=== PATIENT | female | born 1975 | race Caucasian/White ===

== ENCOUNTER 2017-03-15 01:14 | Emergency (ER) | payer BC ==
[2017-03-15] MEDS ORDERED: NEOMYCIN-POLYMYXIN-HC EAR SUSP 200 DROP/10 ML BOT ONE (01:42)
[2017-03-15] MEDS ORDERED: cefTRIAXone\\ROCEPHIN 1 GM VIAL ONE (01:43)
[2017-03-15] MEDS ORDERED: Ibuprofen 800 MG TAB ONE (01:43)
[2017-03-15] MEDS ORDERED: Lidocaine 1% 20 ML MDV ONE (09:45)
== END 2017-03-15 02:05 | disposition home or self-care (01) ==
LOC: MADERS 01:14
DX: H60.91 Unspecified otitis externa, right ear (principal); E03.9 Hypothyroidism, unspecified; I10 Essential (primary) hypertension; Z79.899 Other long term (current) drug therapy
CPT/HCPCS: 96372; J0696; J2001

== ENCOUNTER 2020-08-29 18:27 | Emergency (ER) | payer BC, OTHER, SELFPAY ==
[2020-08-29] MEDS ORDERED: HYDROcodone/Acetaminophen 10/325 mg Tablet ONE (19:01)
== END 2020-08-29 19:07 | disposition home or self-care (01) ==
LOC: MADERS 18:27
DX: K02.9 Dental caries, unspecified (principal); K08.89 Other specified disorders of teeth and supporting structures; F17.210 Nicotine dependence, cigarettes, uncomplicated; E03.9 Hypothyroidism, unspecified; I10 Essential (primary) hypertension; Z79.899 Other long term (current) drug therapy
CPT/HCPCS: 99282

== ENCOUNTER 2020-12-26 14:48 | Outpatient (CLI) | payer BC | END 2020-12-26 14:49 | disposition home or self-care (01) | LOC: MADRAD 14:48 | PROVIDERS: ATTEND Family Medicine | DX: M79.672 Pain in left foot (principal) ==

== ENCOUNTER 2021-10-16 09:33 | Outpatient (CLI) | payer BC | END 2021-10-16 09:34 | disposition home or self-care (01) | LOC: MADULT 09:33 | PROVIDERS: ATTEND Family Medicine | DX: N92.0 Excessive and frequent menstruation with regular cycle (principal) | CPT/HCPCS: 76856 ==